=== PATIENT | male | born 1940 | race Caucasian/White ===

== ENCOUNTER → 2017-08-27 11:08 | Outpatient (CLI) | payer MEDICARE, OTHER, SELFPAY ==
--- NOTE | 2017-08-28 17:56 | DI.NM.S_ITS ---
DATE OF SERVICE: 08/27/2017 REFERRING PHYSICIAN: Rashawn Mcdowell MD PROCEDURE: Nuclear cardiac stress study. INDICATIONS: Mr. Watts is 77-year-old gentleman with cardiac risk factors and atypical chest discomfort. Nuclear cardiac stress study is performed to evaluate for underlying ischemic heart disease. STRESS TEST: This patient exercised on a regular Darron protocol for a total of 4 minutes reaching a peak heart rate of 152 beats per minute with a peak systolic blood pressure of 180 mmHg. Test was stopped due to symptoms of dyspnea without symptoms of chest pain. Patient had [id number] PVCs at rest, increasing with stress. The reported ST-segment changes are a result of summation of regular beats with PVCs and on review of his [place] rhythm, I do not see clear-cut diagnostic ST-segment changes of ischemia. PROCEDURE: This gentleman received 26 mCi of technetium-99 Myoview for the stress portion of the examination. He returned 1 day later for the resting portion of the examination receiving an additional 25.6 mCi technetium-99 Myoview. FINDINGS: Raw Data: Raw data images demonstrate overall good image quality. No significant source of artifact or interference identified. Quantitative Gated SPECT Imaging: Gated images shows a normal size ventricle with an end-diastolic volume of 111 cc. Overall estimated ejection fraction in the range of 75% with no clear regional wall motion abnormalities. Quantitative Perfusion SPECT Imaging: Myocardial perfusion imaging shows a focal normal area of apical hypoperfusion, most likely consistent with normal apical thinning. There is no difference between stress and rest images. Prone images could not be performed. I don't see any clear-cut perfusion abnormalities that would suggest ischemia. The apical perfusion abnormality could relate to underlying ischemic heart disease and therefore, clinical correlation suggested. Kenny Larson - ANDRE/judi/ doc#: [id number]/job#: [id number] dd: 08/28/2017 17:05:00 dt: 08/28/2017 17:45:00 DICTATING MD/COPIES TO: Roberto Gutiérrez MD COPIES MNE: KWAN
== END ==
PROVIDERS: PCP Family Medicine; Visit Provider Internal Medicine Cardiovascular Disease
DX: R07.89 Other chest pain (principal)
CPT/HCPCS: 78452; 93016; 93017; 93018; A9502

== ENCOUNTER → 2017-08-28 11:31 | Outpatient (CLI) | payer MEDICARE, OTHER, SELFPAY ==
--- NOTE | 2017-08-28 06:00 | DI.ECHO.S_ITS ---
Echocardiogram Report + + :Name: HANNAH HENDERSON Study Date: 08/28/2017 Height: 68 in : :[facility] Exam Location: [facility] Weight: 228 lb : : Gender: Male BSA: 2.2 m2 : :: 1940 Age: 77 yrs BP: 132/78 mmHg: :Reason For Study: CHEST DISCOMFORT : : Performed By: Dorinda Ko : :Referring: NATALI GUERIN : + + Interpretation Summary The left ventricle is normal in size. The ejection fraction is estimated to be 55-60%. The right ventricle is normal in size and function. No significant valvular pathology seen. Procedure: A two-dimensional transthoracic echocardiogram with color flow and Doppler was performed. The study quality was technically adequate. There is no prior echocardiogram noted for this patient. Patient was supine for the exam due to left shoulder pain. The heart rate ranged between 59-68 bpm during the study. The patient was in normal sinus rhythm during the exam. Left Ventricle: The left ventricle is normal in size. Left ventricular wall thickness is mildly increased. There is no thrombus. The ejection fraction is estimated to be 55-60%. There are no focal wall motion abnormalities. Assessment of diastolic parameters indicates a relaxation abnormality of the left ventricle, consistent with normal filling pressures. Right Ventricle: The right ventricle is normal in size and function. Atria: Both atria are normal in size. There is no Doppler evidence for an interatrial shunt. Mitral Valve: The mitral valve is normal in structure and function. There is trace mitral regurgitation. Aortic Valve: The aortic valve is not well visualized. The aortic valve is slightly calcified. There is no aortic valve stenosis. No aortic regurgitation is present. Tricuspid Valve: The tricuspid valve is normal in structure and function. Pulmonary artery pressures cannot be estimated because of the lack of a measurable TR jet velocity. There is trace tricuspid regurgitation. Pulmonic Valve: The pulmonic valve is not well visualized. There is a trace or physiologic amount of pulmonic regurgitation. Great Vessels: The aortic root is normal size. The ascending aorta is normal in size. The aortic arch is at the upper limits of normal in size. The pulmonary artery is normal size. The IVC is of normal diameter and collapses greater than 50% with a sniff. This suggests a low right atrial pressure of 3 mm Hg. Pericardium/ Pleura There is no pericardial effusion. There is no pleural effusion. MMode/2D Measurements & Calculations LVIDd: 4.9 cm LVOT diam: 2.3 cm LVIDs: 3.6 cm Ao root diam: 3.7 cm FS: 27.5 % asc Aorta Diam: 3.3 cm IVSd: 1.2 cm Ao Arch Diam (Prox Trans): 3.0 cm LVPWd: 0.93 cm LV dior. diameter/BSA (cm/m^2): 2.3 LV sys. diameter/BSA (cm/m^2): 1.6 LA A2 area: 21.7 cm2 RA long axis: 4.7 cm LA A4 area: 26.4 cm2 RA area: 12.1 cm2 LA length (vol): 6.9 cm RA vol: 26.7 ml LA vol: 71.0 ml RA : 12.4 ml/m2 LA vol index: 32.8 ml/m2 IVC diam: 1.5 cm RVD1 (basal): 3.1 cm TAPSE: 2.1 cm Doppler Measurements & Calculations Ao V2 max: 142.0 cm/sec LVOT Max Felipe: 91.1 cm/sec Ao V2 mean: 101.8 cm/sec LV V1 max P.3 mmHg Ao max P.1 mmHg LV V1 VTI: 20.5 cm Ao mean P.5 mmHg ROLDAN(I,D): 2.7 cm2 Ao V2 VTI: 32.2 cm ROLDAN(V,D): 2.7 cm2 sev ratio: 0.64 ROLDAN indexed to BSA (cm^2/m^2): 1.2 MV E max felipe: 86.9 cm/sec MV A max felipe: 93.9 cm/sec MV E/A: 0.93 Med Peak E' Felipe: 7.9 cm/sec E/E' med: 11.1 Lat Peak E' Felipe: 9.5 cm/sec E/E' lat: 9.1 E/e' average: 10.1 MV dec time: 0.21 sec _
== END ==
PROVIDERS: PCP Family Medicine; Visit Provider Internal Medicine Cardiovascular Disease
DX: R07.89 Other chest pain (principal)
CPT/HCPCS: 93306